=== PATIENT | male | born 1995 | race Caucasian/White ===

== ENCOUNTER 2017-08-28 20:16 | Emergency (ER) | payer MEDICAID ==
[2017-08-28 20:32] VITALS: BP 139/80; PULSE 93; RESP 18; TEMP 98.6; O2SAT 100
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
== END 2017-08-28 21:18 | disposition home or self-care (01) ==
LOC: C.ER 20:16
DX: Z48.02 Encounter for removal of sutures (principal)

== ENCOUNTER 2018-07-10 13:24 | Outpatient (CLI) | payer MEDICAID | END 2018-07-10 13:25 | disposition home or self-care (01) | LOC: C.LAB 13:24 ==

== ENCOUNTER 2018-07-13 09:57 | Day surgery (SDC) | payer MEDICAID | END 2018-07-13 14:36 | disposition home or self-care (01) | LOC: C.SDS 09:57 | DX: C11.0 Malignant neoplasm of superior wall of nasopharynx (principal) ==